=== PATIENT | male | born 1955 | race Asian ===

== ENCOUNTER 2020-02-16 20:22 | Emergency (ER) | payer SELFPAY ==
[~2020-02-16] VITALS: Ht 152.4 cm; Wt 50.0 kg
[2020-02-16 20:24] VITALS: BP 169/87
[2020-02-16] MEDS ORDERED: ENAL5TAB17 PO (20:29)
[2020-02-16] MEDS ORDERED: ATOR20TA86 PO (20:29)
[2020-02-16] MEDS ORDERED: ASPI-728 PO (20:29)
[2020-02-16] MEDS ORDERED: CARV6 PO (20:29)
== END 2020-02-16 22:07 | disposition left against medical advice (07) ==
LOC: EMS 20:33
DX: M25.551 Pain in right hip (principal); Z53.21 Procedure and treatment not carried out due to patient leaving prior to being seen by health care provider

== ENCOUNTER 2020-02-17 12:04 | Emergency (ER) | payer SELFPAY ==
[~2020-02-17] VITALS: Ht 153 cm; Wt 50.0 kg
[~2020-02-17 12:04] MED LIST: ASPI-728 PO; ATOR20TA86 PO; CARV6 PO; ENAL5TAB17 PO
[2020-02-17] MEDS ORDERED: ACETAMINOPHEN 500 MG TABLET PO ONE (12:30)
[2020-02-17 14:05] VITALS: BP 130/76
== END 2020-02-17 14:17 | disposition home or self-care (01) ==
LOC: EMS 12:10
DX: M25.511 Pain in right shoulder (principal); M25.521 Pain in right elbow; I10 Essential (primary) hypertension; Z79.82 Long term (current) use of aspirin; Z79.899 Other long term (current) drug therapy